=== PATIENT | female | born 1995 | race Two or more races ===

== ENCOUNTER 2020-05-27 11:13 | Emergency (ER) | payer MEDICAID, OTHER ==
[~2020-05-27] VITALS: Ht 170.2 cm; Wt 86.2 kg
[2020-05-27 11:56] VITALS: BP 121/79
== END 2020-05-27 11:55 | disposition home or self-care (01) ==
LOC: ER 11:13
DX: F41.9 Anxiety disorder, unspecified (principal); J40 Bronchitis, not specified as acute or chronic; F17.210 Nicotine dependence, cigarettes, uncomplicated
CPT/HCPCS: 71045

== ENCOUNTER 2020-05-31 16:22 | Emergency (ER) | payer MEDICAID ==
[~2020-05-31] VITALS: Ht 170.2 cm; Wt 90.7 kg
[2020-05-31 17:28] VITALS: BP 126/82
[2020-05-31] MEDS ORDERED: ALPRAZolam 0.5 MG TAB PO ONE (17:30)
== END 2020-05-31 18:12 | disposition home or self-care (01) ==
LOC: EDBD 16:22 → ER 16:22
DX: F41.1 Generalized anxiety disorder (principal)
CPT/HCPCS: 93005